=== PATIENT | male | born 1950 | race Two or more races ===

== ENCOUNTER 2024-01-03 19:51 | Emergency (ER) | payer MEDICAID, MEDICARE ==
[~2024-01-03] VITALS: Ht 172.7 cm; Wt 66.3 kg
[2024-01-03 21:11] LABS: Basophils # (auto) 0 10 ^3/uL (0-0.2); Basophils % (auto) 0.4 % (0.0-2.0); Eosinophils # (auto) 0.1 10 ^3/uL (0-0.8); Hematocrit 36.3 % (41.0-53.0); Hemoglobin 12.1 g/dL (13.5-17.5); Lymphocytes # (auto) 1.4 10 ^3/uL (0.4-5.4); Lymphocytes % (auto) 20.5 % (10.0-50.0); Mean Corpuscular Hemoglobin 31.2 pg (28.0-32.0); Mean Corpuscular Hgb Conc. 33.3 g/dL (32.0-36.0); Mean Corpuscular Volume 93.7 fL (80.0-100.0); Monocytes # (auto) 0.8 10 ^3/uL (0-1.3); Monocytes % (auto) 11.2 % (0.0-12.0); Neutrophils # (auto) 4.7 10 ^3/uL (1.6-8.6); Neutrophils % (auto) 66.9 % (37.0-80.0); Nucleated Red Blood Cells % 0.1 %; Red Blood Cells 3.87 10^6/uL (4.5-5.90); Red Cell Distribution Width 13.1 % (11.8-14.3)
[2024-01-03 21:20] LABS: Chloride 107 mmol/L (98-107); Potassium 3.6 mmol/L (3.5-5.1); Sodium 141 mmol/L (136-145)
[2024-01-03 21:21] LABS: Anion Gap 7 (5-15); Calcium 9.5 mg/dL (8.5-10.1); Carbon Dioxide 27 mmol/L (20-30)
[2024-01-03 21:26] LABS: BUN/Creatinine Ratio 26.3 (10.0-20.0); Blood Urea Nitrogen 20 mg/dL (9-23); Glucose 113 mg/dL (74-106)
[2024-01-03 23:45] VITALS: BP 168/88; PULSE 72; RESP 13; TEMP 98.8; O2SAT 96
[2024-01-03] MEDS: FUROSEMIDE 40 MG/4 ML VIAL IV ONE (23:45)
== END 2024-01-03 23:47 | disposition left against medical advice (07) ==
LOC: ER 19:51
DX: I51.3 Intracardiac thrombosis, not elsewhere classified (principal); R07.89 Other chest pain; R09.89 Other specified symptoms and signs involving the circulatory and respiratory systems
CPT/HCPCS: 36415; 71046; 80048; 84484; 85025; 93005